=== PATIENT | male | born 1965 | race Caucasian/White ===

== ENCOUNTER 2017-07-21 22:52 | Observation (INO) | payer OTHER ==
[2017-07-21] MEDS: OCTREOTIDE 500 MCG in SOD CHLORIDE 0.9% 49 ML IV (23:30)
[2017-07-21] MEDS: SOD CHLORIDE 0.9% 1,000 ML IV (23:44)
[2017-07-21] MEDS: FAMOTIDINE 20 MG INJ IV (23:45)
[2017-07-21] MEDS: PANTOPRAZOLE 40 MG INJ IV (23:45)
[2017-07-21] MEDS: ONDANSETRON 4 MG INJ IV (23:45)
[2017-07-21 23:57] LABS: ADD MAN DIFF? NO
[2017-07-21 23:59] LABS: ABNORMAL IP MESSAGE 1; BASOPHILS % 0.9 % (0.0-2.0); EOSINOPHILS # 0.4 10^3/ul (0.0-0.5); HEMATOCRIT 34.8 % (42.0-52.0); HEMOGLOBIN 12.2 g/dl (14.0-18.0); LYMPHOCYTES # 1.4 10^3/ul (0.8-2.9); LYMPHOCYTES % 32.3 % (15.0-51.0); MEAN CORPUSCULAR HEMOGLOBIN 35.2 pg (29.0-33.0); MEAN CORPUSCULAR HGB CONC 35.1 g/dl (32.0-37.0); MEAN CORPUSCULAR VOLUME 100.3 fl (82.0-101.0); MEAN PLATELET VOLUME 10.8 fl (7.4-10.4); MONOCYTE # 0.6 10^3/ul (0.3-0.9); MONOCYTES % 13.9 % (0.0-11.0); NEUTROPHILS % 44.7 % (39.0-77.0); PLATELET COUNT 89 10^3/UL (140-415); POSITIVE DIFF @See below; RED BLOOD COUNT 3.47 10^6/ul (4.70-6.10)
[2017-07-21 23:59] LABS: WHITE BLOOD COUNT 4.4 10^3/ul (4.8-10.8)
[2017-07-22 00:14] LABS: INR 1.45; PROTIME 17.9 Sec (11.9-14.9); PT RATIO 1.4
[2017-07-22 00:15] LABS: PARTIAL THROMBOPLASTIN TIME 38.1 Sec (25.0-35.0)
[2017-07-22 00:16] LABS: ALANINE AMINOTRANSFERASE 95 IU/L (13-69); ALBUMIN 2.8 g/dl (3.3-4.9); ALBUMIN/GLOBULIN RATIO 0.68; ALKALINE PHOSPHATASE 114 IU/L (42-121); ANION GAP 13 (8-16); ASPARTATE AMINO TRANSFERASE 116 IU/L (15-46); BILIRUBIN,INDIRECT 2.3 mg/dl (0-1.1); BILIRUBIN,TOTAL 2.3 mg/dl (0.2-1.3); BLOOD UREA NITROGEN 21 mg/dl (7-20); CALCIUM 8.7 mg/dl (8.4-10.2); CARBON DIOXIDE 27 mmol/L (21-31); CHLORIDE 109 mmol/L (97-110); CREATININE 0.52 mg/dl (0.61-1.24); GLUCOSE 105 mg/dl (70-220); LIPASE 151 U/L (23-300); POTASSIUM 4.2 mmol/L (3.5-5.1); SODIUM 145 mmol/L (135-144); TOTAL PROTEIN 6.9 g/dl (6.1-8.1)
[2017-07-22] MEDS: OCTREOTIDE 50 MCG in SOD CHLORIDE 0.9% 25 ML IVPB (00:30)
[2017-07-22 00:32] LABS: TROPONIN-I < 0.012 ng/ml (0.00-0.12)
[2017-07-22] MEDS ORDERED: ACETAMINOPHEN 325 MG TAB PO (03:00)
[2017-07-22] MEDS ORDERED: ONDANSETRON 4 MG INJ IV (03:00)
[2017-07-22] MEDS ORDERED: morphine 2 MG INJ IV (03:00)
[2017-07-22] MEDS ORDERED: NACL 0.9% 3 ML SYG IV (03:00)
[2017-07-22 06:24] LABS: ADD MAN DIFF? NO
[2017-07-22 06:26] LABS: WHITE BLOOD COUNT 3.7 10^3/ul (4.8-10.8)
[2017-07-22 06:26] LABS: ABNORMAL IP MESSAGE 1; BASOPHILS % 0.5 % (0.0-2.0); EOSINOPHILS # 0.3 10^3/ul (0.0-0.5); EOSINOPHILS % 8.1 % (0.0-7.0); HEMATOCRIT 29.9 % (42.0-52.0); HEMOGLOBIN 10.4 g/dl (14.0-18.0); LYMPHOCYTES # 1.3 10^3/ul (0.8-2.9); LYMPHOCYTES % 35.8 % (15.0-51.0); MEAN CORPUSCULAR HGB CONC 34.8 g/dl (32.0-37.0); MEAN CORPUSCULAR VOLUME 100.7 fl (82.0-101.0); MEAN PLATELET VOLUME 11.6 fl (7.4-10.4); MONOCYTE # 0.5 10^3/ul (0.3-0.9); MONOCYTES % 13.2 % (0.0-11.0); NEUTROPHIL # 1.6 10^3/ul (1.6-7.5); NEUTROPHILS % 42.4 % (39.0-77.0); PLATELET COUNT 76 10^3/UL (140-415); POSITIVE DIFF @See below; RED BLOOD COUNT 2.97 10^6/ul (4.70-6.10)
[2017-07-22 06:51] LABS: ALANINE AMINOTRANSFERASE 84 IU/L (13-69); ALBUMIN 2.4 g/dl (3.3-4.9); ALKALINE PHOSPHATASE 99 IU/L (42-121); ANION GAP 11 (8-16); ASPARTATE AMINO TRANSFERASE 101 IU/L (15-46); BILIRUBIN,INDIRECT 1.8 mg/dl (0-1.1); BILIRUBIN,TOTAL 1.8 mg/dl (0.2-1.3); BLOOD UREA NITROGEN 20 mg/dl (7-20); CALCIUM 8.2 mg/dl (8.4-10.2); CARBON DIOXIDE 25 mmol/L (21-31); CHLORIDE 115 mmol/L (97-110); CREATININE 0.55 mg/dl (0.61-1.24); GLUCOSE 83 mg/dl (70-220); POTASSIUM 4.7 mmol/L (3.5-5.1); SODIUM 146 mmol/L (135-144); TOTAL PROTEIN 5.8 g/dl (6.1-8.1)
[2017-07-22] MEDS: PANTOPRAZOLE 40 MG INJ IV ×2 (10:06→16:36)
[2017-07-22] MEDS: FUROSEMIDE 40 MG TAB PO ×2 (10:07→16:36)
[2017-07-22] MEDS: SPIRONOLACTONE 50 MG TAB PO (12:01)
[2017-07-22] MEDS ORDERED: NICOTINE (7 MG/24 HR) PATCH TRANSDERM (16:00)
[2017-07-23] MEDS: PANTOPRAZOLE 40 MG INJ IV ×2 (05:08→17:31)
[2017-07-23] MEDS: FUROSEMIDE 40 MG TAB PO ×2 (05:09→17:31)
[2017-07-23 07:18] LABS: ADD MAN DIFF? NO
[2017-07-23 07:23] LABS: ABNORMAL IP MESSAGE 1; EOSINOPHILS # 0.2 10^3/ul (0.0-0.5); EOSINOPHILS % 5.8 % (0.0-7.0); HEMATOCRIT 28.2 % (42.0-52.0); LYMPHOCYTES # 1.3 10^3/ul (0.8-2.9); LYMPHOCYTES % 33.7 % (15.0-51.0); MEAN CORPUSCULAR HEMOGLOBIN 34.8 pg (29.0-33.0); MEAN CORPUSCULAR HGB CONC 35.5 g/dl (32.0-37.0); MEAN CORPUSCULAR VOLUME 98.3 fl (82.0-101.0); MEAN PLATELET VOLUME 11.4 fl (7.4-10.4); MONOCYTE # 0.5 10^3/ul (0.3-0.9); MONOCYTES % 11.6 % (0.0-11.0); NEUTROPHIL # 1.9 10^3/ul (1.6-7.5); NEUTROPHILS % 47.6 % (39.0-77.0); PLATELET COUNT 84 10^3/UL (140-415); POSITIVE DIFF @See below; RED BLOOD COUNT 2.87 10^6/ul (4.70-6.10); RED CELL DISTRIBUTION WIDTH 15.7 % (11.5-14.5)
[2017-07-23 07:43] LABS: ANION GAP 14 (8-16); BLOOD UREA NITROGEN 17 mg/dl (7-20); CALCIUM 8.3 mg/dl (8.4-10.2); CARBON DIOXIDE 27 mmol/L (21-31); CHLORIDE 109 mmol/L (97-110); CREATININE 0.66 mg/dl (0.61-1.24); GLUCOSE 83 mg/dl (70-220); MAGNESIUM 1.7 mg/dl (1.7-2.5); PHOSPHORUS 3.9 mg/dl (2.5-4.9); POTASSIUM 3.8 mmol/L (3.5-5.1); SODIUM 146 mmol/L (135-144)
[2017-07-23] MEDS: SPIRONOLACTONE 50 MG TAB PO (08:05)
[2017-07-23] MEDS: MAGNESIUM SULFATE 2 GM/50 ML 50 ML IVPB (10:44)
[2017-07-23] MEDS: FENTAnyl 50 MCG/ML VIAL (12:53)
[2017-07-23] MEDS: PROPOFOL 20 ML (12:53)
[2017-07-23] MEDS ORDERED: ONDANSETRON 4 MG INJ IV (13:30)
[2017-07-24] MEDS: PANTOPRAZOLE 40 MG INJ IV ×2 (05:30→17:36)
[2017-07-24] MEDS: FUROSEMIDE 40 MG TAB PO ×2 (05:34→17:38)
[2017-07-24 06:05] LABS: ADD MAN DIFF? NO
[2017-07-24 06:11] LABS: WHITE BLOOD COUNT 4.5 10^3/ul (4.8-10.8)
[2017-07-24 06:11] LABS: ABNORMAL IP MESSAGE 1; BASOPHIL # 0.1 10^3/ul (0.0-0.1); BASOPHILS % 1.1 % (0.0-2.0); EOSINOPHILS # 0.3 10^3/ul (0.0-0.5); EOSINOPHILS % 7.5 % (0.0-7.0); HEMATOCRIT 28.6 % (42.0-52.0); HEMOGLOBIN 10.3 g/dl (14.0-18.0); LYMPHOCYTES # 1.3 10^3/ul (0.8-2.9); LYMPHOCYTES % 29.5 % (15.0-51.0); MEAN CORPUSCULAR HEMOGLOBIN 35.4 pg (29.0-33.0); MEAN CORPUSCULAR VOLUME 98.3 fl (82.0-101.0); MEAN PLATELET VOLUME 11.2 fl (7.4-10.4); MONOCYTE # 0.5 10^3/ul (0.3-0.9); MONOCYTES % 11.2 % (0.0-11.0); NEUTROPHIL # 2.3 10^3/ul (1.6-7.5); NEUTROPHILS % 50.5 % (39.0-77.0); PLATELET COUNT 96 10^3/UL (140-415); POSITIVE DIFF @See below; RED BLOOD COUNT 2.91 10^6/ul (4.70-6.10); RED CELL DISTRIBUTION WIDTH 15.9 % (11.5-14.5)
[2017-07-24 07:29] LABS: ANION GAP 11 (8-16); BLOOD UREA NITROGEN 17 mg/dl (7-20); CARBON DIOXIDE 28 mmol/L (21-31); CHLORIDE 108 mmol/L (97-110); CREATININE 0.67 mg/dl (0.61-1.24); GLUCOSE 87 mg/dl (70-220); MAGNESIUM 1.9 mg/dl (1.7-2.5); POTASSIUM 3.6 mmol/L (3.5-5.1); SODIUM 143 mmol/L (135-144)
[2017-07-24] MEDS: SPIRONOLACTONE 50 MG TAB PO (08:41)
== END 2017-07-24 18:10 | disposition home or self-care (01) ==
LOC: MS1 07-24 06:43 → E/R 22:52 → MS4 07-22 01:35
DX: K92.0 Hematemesis (principal); K74.60 Unspecified cirrhosis of liver; B18.2 Chronic viral hepatitis C; K21.9 Gastro-esophageal reflux disease without esophagitis; I85.00 Esophageal varices without bleeding; I86.4 Gastric varices; Z87.11 Personal history of peptic ulcer disease
CPT/HCPCS: 36415; 71045; 76700; 80048; 80053; 83690; 83735; 84100; 84484; 85025; 85610; 85730; 86850; 86900; 86901; 88305; 88312; 93005; 96374; 96375; 99285-25; G0378